=== PATIENT | male | born 1970 | race Caucasian/White ===

== ENCOUNTER 2020-07-25 00:45 | Emergency (ER) | payer BC, OTHER ==
[2020-07-25] MEDS ORDERED: Sodium Chloride 0.9% 10 ML Syringe FLUSH PRN (00:48)
[2020-07-25] MEDS ORDERED: HYDROmorphone 1 MG/ML Syringe IVPUSH ONE (00:49)
[2020-07-25 00:56] VITALS: BP 149/94; PULSE 70
[2020-07-25] MEDS ORDERED: Lactated Ringers 1,000 ML IV SCH (01:00)
--- NOTE | 2020-07-25 01:10 | PCM.PREANE ---
Preanesthetic Assessment - Procedure Proposed Procedure: closed reduction ankle - Anesthesia/Transfusion/Family Hx Anesthesia History: Prior Anesthesia Without Reaction Family History of Anesthesia Reaction: No Transfusion History: Prior Transfusion Without Reaction Intubation History: Unknown - Review of Systems General: No Symptoms Cardiovascular: No Symptoms (HTN, history of CT with stents (3) placed in 2013/history of orthostatic hypotension), Dyspnea on Exertion Gastrointestinal: No Symptoms Neurological: No Symptoms (lower back pain) Other: Reports: Easy Bleeding, Easy Bruising, Sinus Problem (seasonal allergies) - Physical Assessment NPO Status Date: 07/24/20 NPO Status Time: 23:45 Vital Signs: Last Vital Signs Temp 37.1 C 07/25/20 00:50 Pulse 70 07/25/20 00:50 Resp 14 07/25/20 00:50 BP 149/94 H 07/25/20 00:50 Pulse Ox 97 07/25/20 00:50 Height: 1.83 m Weight: 95.254 kg ASA Class: 2E Mental Status: Alert & Oriented x3 Airway Class: Mallampati = 2 Dentition: Reports: Normal Dentition, Caries Thyro-Mental Finger Breadths: 3 Mouth Opening Finger Breadths: 3 ROM/Head Extension: Full Lungs: Clear to Auscultation, Normal Respiratory Effort Cardiovascular: Regular Rate, Regular Rhythm, No Murmurs - Allergies Allergies/Adverse Reactions: Allergies Allergy/AdvReac Type Severity Reaction Status Date / Time No Known Allergies Allergy Verified 10/01/14 04:50 - Acknowledgements Anesthesia Type Planned: MAC Pt an Appropriate Candidate for the Planned Anesthesia: Yes Alternatives and Risks of Anesthesia Discussed w Pt/Guardian: Yes Pt/Guardian Understands and Agrees with Anesthesia Plan: Yes PreAnesthesia Questionnaire - Past Surgical History Other Male Surgeries/Procedures: vasectomy 2003 - HOME MEDS Home Medications: Home Meds ramipriL [Altace] 10 mg PO DAILY 01/11/14 [History] atorvaSTATin [Lipitor] 40 mg PO DAILY 01/22/14 [History] Clopidogrel [Plavix] 75 mg PO DAILY 10/01/14 [History] Ferrous Sulfate [Feosol] 325 mg PO TID #90 tablet 10/02/14 [Rx] Pantoprazole Sodium [Protonix] 40 mg PO BID #60 tablet 10/02/14 [Rx] - CURRENT (IN HOUSE) MEDS Current Meds: Current Medications Lactated Ringer's (Ringers, Lactated) 1,000 mls @ 100 mls/hr IV ASDIRECTED NIKIA Sodium Chloride (Sodium Chloride 0.9% 10 Ml Syringe) 10 ml FLUSH ASDIRECTED PRN PRN Reason: Keep Vein Open Discontinued Medications Hydromorphone HCl (Hydromorphone 1 Mg/Ml Syringe) 1 mg IVPUSH ONETIME ONE Stop: 07/25/20 00:50
[2020-07-25] MEDS ORDERED: Propofol 200 MG/20 ML SDV ONE (01:13)
[2020-07-25] MEDS ORDERED: fentaNYL 100 MCG/2 ML SDV ONE (01:13)
[2020-07-25] MEDS ORDERED: Ketamine 500 mg/10 ML MDV ONE (01:13)
[2020-07-25] MEDS ORDERED: Midazolam 1 MG/ML 2 ML SDV ONE (01:15)
[2020-07-25] MEDS ORDERED: Ondansetron 4 MG/2 ML SDV IVPUSH PRN (01:46)
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
--- NOTE | 2020-07-25 02:14 | PCM48HPAN ---
Post Anesthesia Note - EVALUATION WITHIN 48HRS OF ANESTHETIC Vital Signs in Normal Range: Yes Patient Participated in Evaluation: Yes Respiratory Function Stable: Yes Airway Patent: Yes Cardiovascular Function Stable: Yes Hydration Status Stable: Yes Pain Control Satisfactory: Yes Nausea and Vomiting Control Satisfactory: Yes Mental Status Recovered: Yes Vital Signs: Last Vital Signs Temp 37.1 C 07/25/20 00:50 Pulse 70 07/25/20 00:50 Resp 14 07/25/20 00:50 BP 149/94 H 07/25/20 00:50 Pulse Ox 97 07/25/20 00:50
--- NOTE | 2020-07-25 07:55 | CR ---
Left ankle: AP and crosstable lateral views were obtained of the left ankle. Comparison: Prior study performed earlier on the same date (12:57 AM). Distal fibular shaft fracture is noted. Medial malleolus fracture is seen. Previous dislocation has been reduced. Fiberglas splint is in place. Soft tissue calcifications are seen which appear chronic. Impression: 1. Reduced dislocation. 2. Continuing fractures are seen laterally and medially. 3. Fiberglas splint is in place. Diagnostic code #2
--- NOTE | 2020-07-25 07:56 | CR ---
Left ankle: 3 views of the left ankle were obtained. Comparison: No previous ankle study. Displaced distal fibular shaft fracture is noted. Fracture also appears to be present within the medial malleolus. Dislocation at the tibiotalar joint is seen in a medial direction of the tibia. No additional abnormality is seen other than soft tissue calcifications. Impression: 1. Bimalleolar fracture with displacement and dislocation at the tibiotalar joint. Diagnostic code #3
== END 2020-07-25 02:40 | disposition home or self-care (01) ==
LOC: JD.ED 00:45
DX: S82.52XA Displaced fracture of medial malleolus of left tibia, initial encounter for closed fracture (principal); S93.05XA Dislocation of left ankle joint, initial encounter; S82.832A Other fracture of upper and lower end of left fibula, initial encounter for closed fracture; Z79.02 Long term (current) use of antithrombotics/antiplatelets; Z79.899 Other long term (current) drug therapy; W50.0XXA Accidental hit or strike by another person, initial encounter; Y93.72 Activity, wrestling
CPT/HCPCS: 27840; 73600; 73610; 96374; 99283; J1170; J2250; J2704; J3010; J7120; 01462; 27810; 99284

== ENCOUNTER 2020-08-06 10:00 | Day surgery (SDC) | payer BC ==
--- NOTE | 2020-08-04 17:46 | PCM.SN.2 ---
- Free Text/Narrative Note: Left selective femoral nerve block at the adductor canal for post-procedure pain control under US guidance requested by Dr. Lomas. Time Out: 1210 Start: 1210 End: 1220 Chart reviewed. Consent signed. Questions answered. Appropriate monitors applied. Time out performed. Left mid-shaft femur identified with ultrasound, scanning medially of femur, the femoral artery in the adductor canal visualized, and the femoral nerve located laterally to the artery. The skin was prepped lateral to the ultrasound probe with chlorahexadine times two. The 21ga 4 insulated block needle was inserted under direct ultrasound guidance into the adductor canal. 20mL of 0.5% ropivacaine with 1:200,000 epinephrine was injected circumferentially around the nerve with intermittent negative aspiration noted. Patient tolerated the procedure well. Sterile technique noted along with sterile gloves, mask, and sterile probe cover. See picture on progress note and vital signs on nurses notes. Block completed in PACU. Thank you, Dai Castillo CRNA
--- NOTE | 2020-08-04 17:48 | PCM.SN.2 ---
- Free Text/Narrative Note: Anesthesia Note: (Left Ankle Block) Time out: 1255 Start: 1255 Stop: 125 Procedure: Left Ankle Block for post operative pain control requested by Dr. Lomas. Chart reviewed, allergies noted, risk/benefits discussed with patient, and consent obtained. Patient placed on O2 at 2lpm nasal cannula. Monitors/alarms on, and patient positioned supine for ankle block placement. IV sedation given with versed 2mg, and fentanyl 100mcg prior to procedure. Total of 10mls: 50/50 mixture of (1%lidocaine/0.25% marcaine) Deep peroneal nerve, superficial peroneal, saphenous nerve, posterior tibial, and sural nerve all blocked with negative aspiration noted with each injection. Patient tolerated procedure well. Patient stated prior to going back to the OR that ankle pain was improving. Thank you! Dai Castillo CRNA
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
[~2020-08-06 10:00] MED LIST: Acetaminophen 325 MG Tab PO ONE; Bupivacaine 0.25% 10 ML SDV ONE; EPINEPHrine 1 MG/ML SDV ONE; Lactated Ringers 1,000 ML IV SCH; Lidocaine 1% 6 ML ONE; Lidocaine 1%/Sod Bicarbonate in NS 8.4% 1 ML Syringe IDERM PRN; Midazolam 1 MG/ML 2 ML SDV ONE; Pregabalin 25 MG Cap PO ONE; Ropivacaine 0.5% 5 MG/ML 30 ML SDV ONE; Sodium Chloride 0.9% 10 ML Syringe FLUSH PRN; fentaNYL 100 MCG/2 ML SDV ONE; oxyCODONE ER 10 MG TAB.ER PO ONE
[2020-08-06] MEDS ORDERED: Propofol 200 MG/20 ML SDV ONE (10:43)
[2020-08-06] MEDS ORDERED: Lidocaine 1% 4 ML ONE (10:43)
[2020-08-06] MEDS ORDERED: fentaNYL 100 MCG/2 ML SDV ONE ×2 (10:54→13:16)
[2020-08-06] MEDS ORDERED: Bupivacaine 0.25% 10 ML SDV ONE (11:12)
[2020-08-06] MEDS ORDERED: ceFAZolin 1 GM Vial ONE (12:55)
[2020-08-06] MEDS ORDERED: Lactated Ringers 1,000 ML ONE (13:06)
[2020-08-06] MEDS ORDERED: Ondansetron 4 MG/2 ML SDV IVPUSH PRN (13:12)
[2020-08-06] MEDS ORDERED: HYDROmorphone 0.5 MG/0.5 ML Syringe IVPUSH PRN (13:12)
[2020-08-06] MEDS ORDERED: fentaNYL 100 MCG/2 ML SDV IVPUSH PRN (13:12)
[2020-08-06] MEDS ORDERED: HYDROmorphone 1 MG/ML Syringe ONE (13:17)
[2020-08-06] MEDS ORDERED: Ondansetron 4 MG/2 ML SDV ONE (14:08)
[2020-08-06] MEDS ORDERED: Ketorolac 30 MG/ML SDV ONE (14:08)
[2020-08-06] MEDS ORDERED: oxyCODONE 5 MG Tab PO SCH (14:35)
[2020-08-06] MEDS ORDERED: Meperidine 50 MG/ML Vial ONE (14:55)
--- NOTE | 2020-08-06 15:00 | PCM.POSTAN ---
POST ANESTHESIA ASSESSMENT - MENTAL STATUS Mental Status: Alert, Oriented - VITAL SIGNS Vital Signs: Last Vital Signs Temp 36.7 C 08/06/20 09:55 Pulse 75 08/06/20 09:55 Resp 17 08/06/20 12:22 BP 129/78 08/06/20 12:22 Pulse Ox 98 08/06/20 12:22 - RESPIRATORY Respiratory Status: Respiratory Rate WNL, Airway Patent, O2 Saturation Stable, Supplemental Oxygen - CARDIOVASCULAR CV Status: Pulse Rate WNL, Blood Pressure Stable - GASTROINTESTINAL GI Status: No Symptoms - PAIN Pain Score: 1 (pt shaking, not rating pain, demerol given see chart) - POST OP HYDRATION Hydration Status: Adequate & Stable
--- NOTE | 2020-08-06 15:12 | CR ---
Left ankle: 10 fluoroscopic spot views were obtained of the left ankle. Comparison: Prior ankle study of 07/25/20. Previous fractures show evidence of reduction. Plate and screws are seen affixing the distal fibular shaft fracture. Two screws are noted crossing the medial malleolus fracture. Two screws cross the fibula to the tibia. Posterior malleolus fracture is not well seen on this study. Fluoroscopy time is given as 24.0 seconds. Impression: 1. Procedural study as noted above. Diagnostic code #2
--- NOTE | 2020-08-06 15:17 | PCM48HPAN ---
Post Anesthesia Note - EVALUATION WITHIN 48HRS OF ANESTHETIC Vital Signs in Normal Range: Yes Patient Participated in Evaluation: Yes Respiratory Function Stable: Yes Airway Patent: Yes Cardiovascular Function Stable: Yes Hydration Status Stable: Yes Pain Control Satisfactory: Yes Nausea and Vomiting Control Satisfactory: Yes Mental Status Recovered: Yes Vital Signs: Last Vital Signs Temp 36.6 C 08/06/20 15:15 Pulse 62 08/06/20 15:15 Resp 14 08/06/20 15:15 BP 153/86 H 08/06/20 15:15 Pulse Ox 94 L 08/06/20 15:15
[2020-08-06 16:26] VITALS: BP 148/91; PULSE 70
--- NOTE | 2020-08-12 11:51 | PCM.OPNOTE ---
- General Post-Op/Procedure Note Date of Surgery/Procedure: 08/06/20 Operative Procedure(s): open reduction internal fixation left bimalleolar ankle fracture with fixation of syndesmosis Pre Op Diagnosis: left bimalleolar ankle fracture with syndesmotic disruption Post-Op Diagnosis: Same Anesthesia Technique: General LMA, Regional Block Primary Surgeon: Cory Lomas Anesthesia Provider: Dai Castillo Jointer Operator: Diana Estrada in mLs: 10 Complications: None Condition: Good
--- NOTE | 2020-08-12 12:34 | OR ---
DATE OF OPERATION: 08/06/2020 SURGEON: Cory Lomas MD OPERATION PERFORMED: Open reduction, internal fixation of left bimalleolar ankle fracture with fixation of syndesmosis. PREOPERATIVE DIAGNOSIS: Left bimalleolar ankle fracture with syndesmotic disruption. POSTOPERATIVE DIAGNOSIS: Left bimalleolar ankle fracture with syndesmotic disruption. ANESTHESIA: Technique: General LMA with regional block. ANESTHESIA PROVIDER: Dai Castillo CRNA. PHYSICIAN OPHTHALMOLOGIST: Diana Estrada PA-C ESTIMATED BLOOD LOSS: 10 cc. COMPLICATIONS: None. CONDITION: Stable. DESCRIPTION OF PROCEDURE: The patient was identified in the preoperative holding area. Proper site was marked and identified by the surgeon. The patient was taken back to the operative theater where after adequate anesthesia, the patient's left lower extremity had a nonsterile tourniquet applied and then sterilely prepped and draped in the usual sterile fashion. OR time-out was performed. Patient received 2 g IV Ancef. Left lower extremity was exsanguinated. Tourniquet was insufflated to 250 mmHg. Standard lateral incision was made. Care was taken to protect the superficial peroneal nerve as we went proximally as the patient had a very long comminuted fracture proximally of the fibula. At this time, the fracture site was identified. Curette and rongeur were used to remove fracture hematoma. At this time, a [id number]-wl-[id number] reduction clamp was used for reduction. I was able to get a good cortical read even with a butterfly fragment of the anatomic reduction for fibular length. A lag screw was then placed from anterior to posterior in lag-by technique with 3.5 cortical screw. At this time, a Christina locking lateral fibular plate was placed under C-arm fluoroscopy showing anatomic reduction and proper positioning of the plate. At this time, the plate was affixed with a cortical screw both proximally and distally. It was found to be in adequate position. At this time, locking screws were placed both proximally and distally to the fracture site obtaining at least 8 cortices both proximally and distally to the fracture site to span the fracture site. At this time, attention was turned medially. An incision was made medially. Blunt dissection was taken down to the medial malleolar fragment. The patient was noted to have a loose body in the medial clear space. This was irrigated out as well as all fracture hematoma. Ktajk-gu-[id number] reduction clamp was used for reduction of the medial malleolus. It was found to be anatomically reduced on both AP and lateral views. Two K-wires were placed for 4.0 cannulated, partially-threaded Foreman screws. These were then drilled and two 40 mm, 4.0 cannulated screws were placed. It was found to have good compression of the fracture with anatomic reduction on mortise and lateral view. At this time, the K-wire was removed. Two 3.5 tricortical syndesmotic screws were then placed for fixation of the syndesmosis. The patient had no widening on stress testing. Adequate saline was irrigated through both wounds, 2-0 Vicryl was used subcutaneously, and karen were used for closure of the skin. The patient tolerated the procedure well and was placed in a soft tissue dressing and a posterior slab splint. PAUL /[id number]
== END 2020-08-06 16:32 | disposition home or self-care (01) ==
LOC: JD.SDS 10:00
PROVIDERS: ATTEND Orthopaedic Surgery
DX: S82.842A Displaced bimalleolar fracture of left lower leg, initial encounter for closed fracture (principal); S93.432A Sprain of tibiofibular ligament of left ankle, initial encounter; I10 Essential (primary) hypertension; E78.00 Pure hypercholesterolemia, unspecified; I25.2 Old myocardial infarction; Z98.890 Other specified postprocedural states; Z79.899 Other long term (current) drug therapy; Z87.891 Personal history of nicotine dependence; W19.XXXA Unspecified fall, initial encounter
CPT/HCPCS: 27814; 27829; 76000; A9270; C1713; C1769; C1776; J0171; J0690; J1170; J1885; J2175; J2250; J2405; J2704; J2795; J3010; J3490; J7120; 01480; 64450; 76942